=== PATIENT | male | born 1995 | race Caucasian/White ===

== ENCOUNTER 2019-12-08 17:46 | Emergency (ER) | payer OTHER ==
[~2019-12-08] VITALS: Ht 170.2 cm; Wt 91.0 kg
[2019-12-08 17:49] VITALS: BP 142/84
== END 2019-12-08 18:48 | disposition home or self-care (01) ==
LOC: ER 17:46
DX: S16.1XXA Strain of muscle, fascia and tendon at neck level, initial encounter (principal); S09.8XXA Other specified injuries of head, initial encounter; V49.49XA Driver injured in collision with other motor vehicles in traffic accident, initial encounter; Y93.89 Activity, other specified; Y92.89 Other specified places as the place of occurrence of the external cause; Y99.8 Other external cause status
CPT/HCPCS: 99283